=== PATIENT | male | born 1975 | race Two or more races ===

== ENCOUNTER 2024-06-06 12:04 | Emergency (ER) | payer MEDICAID, SELFPAY ==
[2024-06-06 12:05] VITALS: BMI 35.4
--- NOTE | 2024-06-06 12:22 | XR_ITS ---
Examination: Toes, right foot first digit 3 views Technique: Toes AP oblique lateral 3 views first digit right foot Date and time of exam: June 06, 2024 1232 hrs. Indications: Redness swelling and pain nonhealing wound first digit one week, diabetic history 3 years Findings: Subtle chronic erosion ungual tuft tip distal phalanx first digit with associated soft tissue swelling No fracture Impression: Early cortical bone erosion ungual tuft tip distal phalanx first digit consistent with osteomyelitis Consider MRI foot without contrast follow-up
[2024-06-06 12:25] VITALS: BP 155/103; PULSE 72; RESP 18; TEMP 36.9; O2SAT 99
--- NOTE | 2024-06-06 13:45 | PD.EDRME ---
Rapid Medical Screening Exam RME Arrival date/time: 06/06/24 12:04 49-year-old male diabetic presents to the emergency department complaints of infection to right great toe Chief Complaint: Ankle/Foot Injury Time Seen by Provider: 06/06/24 12:10 Vital signs: Vital Signs Temperature 98.5 F 06/06/24 12:25 Pulse Rate 72 06/06/24 12:25 Respiratory Rate 18 06/06/24 12:25 Blood Pressure 155/103 H 06/06/24 12:25 Pulse Oximetry (%) 99 06/06/24 12:25 Oxygen Delivery Method Room Air 06/06/24 12:25
[2024-06-06 14:32] LABS: Basophils # (Auto) 0.1 Thou/mm3 (0.0-0.2); Basophils % (Auto) 1 % (0-2.5); Eosinophils # (Auto) 0.3 Thou/mm3 (0.0-0.5); Eosinophils % (Auto) 3 % (0-10); Hematocrit 47.4 % (41.0-53.0); Hemoglobin 15.9 g/dL (13.5-16.0); Immature Granulocytes % (Auto) 1 % (0-0); Immature Granulocytes Auto 0.08 Thou/mm3 (0.00-0.00); Lymphocytes # (Auto) 2.1 Thou/mm3 (1.0-4.8); Lymphocytes % (Auto) 21 % (10-50); Mean Corpuscular HGB Conc 33.5 g/dl (31.0-37.0); Mean Corpuscular Hemoglobin 29.3 pg (25.0-35.0); Mean Corpuscular Volume 87 fL (80-100); Monocytes % (Auto) 9 % (0-12); Neutrophils # (Auto) 6.9 Thou/mm3 (1.8-7.7); Neutrophils % (Auto) 66 % (37-80); Nucleated Red Blood Cell % 0 /100 WBC (0); Platelet Count 296 Thou/mm3 (140-440); RDW Standard Deviation 40.4 fL (35.1-43.9); Red Blood Count 5.43 Miln/mm3 (4.50-5.90); White Blood Count 10.4 Thou/mm3 (3.8-10.6)
[2024-06-06 15:06] LABS: Sed Rate (ESR) 29 mm/hr (0-15)
[2024-06-06 15:12] LABS: Alanine Aminotransferase 30 U/L (10-49); Albumin, Serum 4.8 gm/dL (3.5-5.0); Albumin/Globulin Ratio 1.5 (1.2-2.2); Alkaline Phosphatase 100 U/L (46-116); Anion Gap 10 (7-16); Aspartate Amino Transferase 30 U/L (0-34); BUN/Creatinine Ratio 15 Ratio (12-20); Bilirubin,Total 0.5 mg/dL (0.3-1.2); Blood Urea Nitrogen 21 mg/dL (9-23); C-Reactive Protein < 0.4 mg/dL (0.0-0.9); Calcium 9.9 mg/dL (8.3-10.6); Calcium (Corrected) 9.9 mg/dL (8.5-10.1); Carbon Dioxide 23.8 mMol/L (20.0-31.0); Chloride 104 mMol/L (98-107); Creatinine (Component) 1.4 mg/dL (0.6-1.3); Estimated Creatinine Clearance 77.6 mL/min (>60); Globulin 3.2 gm/dL (2.3-3.5); Glucose 234 mg/dL (74-106); Osmolality,Calculated 286 (275-295); Potassium 4.7 mMol/L (3.4-5.1); Procalcitonin 0.13 ng/ml (0.0-0.49); Sodium 138 mMol/L (136-145); eGFR > 60 See Note
--- NOTE | 2024-06-06 18:11 | PD.EDADULT ---
ED General RME/HPI General Chief complaint: Ankle/Foot Injury Stated complaint: INFECTION LEFT GREAT TOE x 5 DAYS Time Seen by Provider: 06/06/24 12:10 Arrival date/time: 06/06/24 12:04 CC: Left great toe pain HPI ongoing for the past week. The patient had a similar episode to the right great toe denies fever chills shortness of breath is a diabetic. No other complaints no OTC medicines taken has not spoken to the the [facility] work from where he gets his health care. RME / HPI RME / HPI narrative: 06/06/24 12:04 49-year-old male diabetic presents to the emergency department complaints of infection to right great toe Related Data Previous Rx's ?Medication ?Instructions ?Recorded metformin 500 mg tablet 500 mg PO BID 1 month #60 tabs 11/13/21 cephalexin 500 mg tablet 500 mg PO TID #21 tabs 06/06/24 sulfamethoxazole 800 1 tab PO BID 7 days #14 tabs 06/06/24 mg-trimethoprim 160 mg tablet (Bactrim DS) Allergies Allergy/AdvReac Type Severity Reaction Status Date / Time No Known Allergies Allergy Verified 06/06/24 12:06 Review of Systems Review of Systems Narrative Review of Systems: GEN: No fever, no chills, no weight loss EYES: No discharge, no visual changes, no pain HEENT: No ear pain, no congestion, no sore throat PULM: No shortness of breath, no cough, no congestion CV: No chest pain, no dyspnea on exertion, no palpitations GI: No nausea, no vomiting, no diarrhea, no pain, no constipation : No frequency, no urgency, no dysuria MUSC/SKEL: No joint pain, no back pain SKIN: No rash PSYCH: No hallucinations, no depression HEME/LYMPH: No easy bleeding or bruising tendencies NEURO: No weakness, no headache Past Medical History Past Medical History NEUROLOGIC: Negative Neurological Disorders CARDIAC: Positive Hypertension; Negative Cardiac Disorders, Myocardial Infarction, Cardiac Arrhythmia, Atrial Fibrillation, Angina, Heart Murmur, Coronary Artery Disease, Atherosclerotic Heart Disease, Peripheral Vascular Disease, Hypercholesterolemia, Aneurysm, Congestive Heart Failure, Congenital Heart Disease, Valvular Heart Disease, Rheumatic Fever, Cardiomyopathy, Edema, Pericarditis, Cellulitis, Deep Vein Thrombosis, Hypotension or Varicose Veins RESPIRATORY: Negative Chronic Obstructive Pulmonary Disease (COPD) or Asthma GASTROINTESTINAL: Negative Gastrointestinal Disorders GENITOURINARY: Negative Genitourinary Disorders or Renal Disease MUSCULOSKELETAL: Negative Musculoskeletal Disorders ENDOCRINE: Positive Diabetes Mellitus Type 2; Negative Endocrine Disorders or Diabetes Mellitus Type 1 HEMATOLOGIC: Negative Blood Disorders or Sickle Cell Disease OTHER HISTORY: Negative Autoimmune Disease, Anesthesia Reactions, Organ Transplant, MRSA, Clostridium Difficile or Cancer Family History FAMILY HISTORY: Negative Family Psychiatric Problems, Family Respiratory Disorders, Family Cardiac Disorders, Family Gastrointestinal Problems, Family Cancer, Family Surgery or Family Anesthesia Reaction Surgical History SURGICAL: Negative Cardiac Surgery, Pacemaker, Endocrine Surgery, Ear Surgery, Abdominal Surgery, Nephrectomy, Joint Replacement, Neurologic Surgery, Mastectomy, Vasectomy or Organ Transplant Social History SMOKING STATUS: Never smoker SUBSTANCE USE: does not use ED Exam Narrative Physical exam: [General: Not in any acute distress Head normocephalic HEENT: Within acceptable limits Neck is supple nontender Chest equal chest rise nontender to palpation Respiratory: Clear to auscultation no wheezes crackles or rubs CV: Rate rhythm is regular no murmurs rubs or clicks Abdomen is soft nontender no masses positive bowel sounds all 4 quadrants Back: No CVA tenderness no spinous process tenderness from cervical spine thoracic and lumbar spine Skin: Small erythematous edematous area to the tip of the left great toe no open ulceration or induration. No streaking, nontender to palpation. Not warm to touch. No other open lesions induration ulcerations. Intact no petechiae rash induration ulceration or crepitus Extremities: Moving all extremity against resistance cap refill less than 2 seconds neurosensory intact Neuro: Awake alert oriented x3 Glascow coma 15 no focal deficits] Course Quality Measures none Orders Category Date Time Status XR toe LT min 2V Stat Exams 06/06/24 12:22 Completed Blood Culture (Lab) Stat Lab 06/06/24 13:58 Received CBC Stat Lab 06/06/24 14:03 Completed CMP [Comprehensive Metabolic Panel] Stat Lab 06/06/24 14:03 Completed CRP [C-Reactive Protein] Stat Lab 06/06/24 14:03 Completed ESR [Sed Rate (ESR)] Stat Lab 06/06/24 14:03 Completed Lactic Acid [Lactate (Lactic Acid)] Stat Lab 06/06/24 14:03 Completed Procalcitonin Stat Lab 06/06/24 14:03 Completed 1,000 mg IM w/Lido* 1% Med 06/06/24 18:11 Ordered cefTRIAXone [Rocephin] 1,000 mg Lidocaine 1% 20 ml [Xylocaine 1% 20 ML] 2.1 ml IM X1 Vital Signs Vital signs: Vital Signs Temperature 98.5 F 06/06/24 12:25 Pulse Rate 72 06/06/24 12:25 Respiratory Rate 18 06/06/24 12:25 Blood Pressure 155/103 H 06/06/24 12:25 Pulse Oximetry (%) 99 06/06/24 12:25 Oxygen Delivery Method Room Air 06/06/24 12:25 [facility] Patient data External records reviewed:: [facility] previous records Clinical information provided by:: patient Social determinants that could affect healthcare access:: none Patient has the following chronic illnesses:: Diabetes How is presenting disease/condition affected by chronic disease/condition?: exacerbated by Evaluation data The following diagnostics were reviewed and interpreted by me:: lab results and radiology exam(s) Lab and/or radiology exams considered but not ordered:: CBC shows no acute leukocytosis anemia thrombocytopenia CMP shows no acute electrolyte imbalances renal impairment transaminitis or T. bili elevation ESR is 29 [place] within acceptable limits Great toe x-ray shows early cortical destruction. Interpretation Summary: This may be early osteomyelitis patient be started on oral antibiotics as written vies to follow-up with the [facility] for wound management referral. Medications Medications considered but not ordered:: None Medication administrations:: None Consultations Consultation(s) initiated? (list below): No Diagnosis Differential Diagnosis ED Complaint MDM: Toe cellulitis toe abscess toe osteomyelitis Most likely diagnosis given after review of the tests above:: Toe cellulitis Admission Indicated Admission indicated?: not indicated Explain why admission is indicated or not indicated:: Stable for outpatient follow-up Admission Request Was there a request for admission?: No Disposition Plan Disposition Plan: Discharge Discharge Attestation Discharge Attestation: The patient and all family members were given an opportunity to ask questions and understood the discharge instructions. Discharge instructions specifically effects, indications for sooner follow up or return to the emergency department, and the expected course of current diagnosis. Patient condition: Stable Medical Decision Making Differential Diagnosis Differential Diagnosis: Toe cellulitis toe abscess toe osteomyelitis Lab Data 06/06/24 14:03 06/06/24 14:03 Labs: Lab Results 06/06/24 Range/Units 14:03 WBC 10.4 (3.8-10.6) Thou/mm3 RBC 5.43 (4.50-5.90) Miln/mm3 Hgb 15.9 (13.5-16.0) g/dL Hct 47.4 (41.0-53.0) % MCV 87 (80-100) fL MCH 29.3 (25.0-35.0) pg MCHC 33.5 (31.0-37.0) g/dl RDW Std Deviation 40.4 (35.1-43.9) fL Plt Count 296 (140-440) Thou/mm3 Neut % (Auto) 66 (37-80) % Lymph % (Auto) 21 (10-50) % [place] % (Auto) 9 (0-12) % Eos % (Auto) 3 (0-10) % Baso % (Auto) 1 (0-2.5) % Neut # (Auto) 6.9 (1.8-7.7) Thou/mm3 Lymph # (Auto) 2.1 (1.0-4.8) Thou/mm3 [place] # (Auto) 1.0 H (0.0-0.8) Thou/mm3 Eos # (Auto) 0.3 (0.0-0.5) Thou/mm3 Baso # (Auto) 0.1 (0.0-0.2) Thou/mm3 Immature Gran # (Auto) 0.08 H (0.00-0.00) Thou/mm3 Absolute Nucleated RBC 0.00 (0.00-0.00) Thou/mm3 Immature Gran % 1 H (0-0) % Nucleated RBC % 0 (0) /100 WBC ESR 29 H (0-15) mm/hr Sodium 138 (136-145) mMol/L Potassium 4.7 (3.4-5.1) mMol/L Chloride 104 (98-107) mMol/L Carbon Dioxide 23.8 (20.0-31.0) mMol/L Anion Gap 10 (7-16) BUN 21 (9-23) mg/dL Creatinine 1.4 H (0.6-1.3) mg/dL Estim Creat Clear Calc 77.6 (>60) mL/min eGFR > 60 (60 - ) See Note BUN/Creatinine Ratio 15 (12-20) Ratio Glucose 234 H (74-106) mg/dL Calculated Osmolality 286 (275-295) Lactic Acid 2.0 (0.4-2.0) mMol/L Calcium 9.9 (8.3-10.6) mg/dL Corrected Calcium 9.9 (8.5-10.1) mg/dL Total Bilirubin 0.5 (0.3-1.2) mg/dL AST 30 (0-34) U/L ALT 30 (10-49) U/L Alkaline Phosphatase 100 (46-116) U/L C-Reactive Prot, Quant < 0.4 (0.0-0.9) mg/dL Total Protein 8.0 (5.7-8.2) gm/dL Albumin 4.8 (3.5-5.0) gm/dL Globulin 3.2 (2.3-3.5) gm/dL Albumin/Globulin Ratio 1.5 (1.2-2.2) Procalcitonin 0.13 (0.0-0.49) ng/ml Discharge Plan Plan Patient Disposition: HOME (Self Care) Patient condition on transfer: Stable Prescriptions/Referrals Prescriptions/Med Rec: New sulfamethoxazole-trimethoprim [Bactrim DS] 800-160 mg tablet 1 tab PO BID 7 Days Qty: 14 0RF cephalexin 500 mg tablet 500 mg PO TID Qty: 21 0RF No Action metformin 500 mg tablet 500 mg PO BID 30 Days Qty: 60 1RF Referrals: Fidel Garcia MD [Primary Care Provider] - In 1 week Problem List Clinical Impression: Cellulitis of great toe Patient/Caregiver Discharge Instructions Other Activity Instructions:: Take the medications as prescribed follow-up with the the [facility] Education Materials: ED Cellulitis Print Language: Persian Stand Alone Forms: Ольга Award Info., Patient Portal Info Letter, Work/School Release PA/CARCASS TRIMMER Supervising Physician PA/CARCASS TRIMMER Supervising Physician: John Wells ENP
[2024-06-06] MEDS: cefTRIAXone 1,000 MG, LIDOCAINE 1% 20 ML 2.1 ML IM (18:37)
== END 2024-06-06 18:47 | disposition home or self-care (01) ==
PROVIDERS: Nurse Practitioner Primary Care; Emergency Provider Emergency Medicine; PCP Family Medicine
DX: L03.032 Cellulitis of left toe (principal)
CPT/HCPCS: 36415; 73660; 80053; 83605; 84145; 85025; 85652; 86140; 87040; 93005; 99283; J0696; J3490

== ENCOUNTER 2024-06-13 16:57 | Emergency (ER) | payer MEDICAID, SELFPAY ==
[2024-06-13 17:04] VITALS: BP 125/86; PULSE 65; RESP 16; TEMP 36.8; O2SAT 99; BMI 33.2
--- NOTE | 2024-06-13 17:15 | EDRME_ITS ---
Rapid Medical Screening Exam [facility] Arrival date/time: 06/13/24 16:57 49-year-old male with a history of type 2 diabetes presents to the emergency room with a chief complaint of a wound to his left great toe. Patient states he followed up with his primary care provider and they sent him to the emergency room to rule out osteomyelitis. Patient was seen here on 06/06/2024 and an x-ray of his foot was completed that showed possible early osteomyelitis and was discharged on antibiotics. Patient states he has been taking his antibiotics but when he saw his primary care provider he was sent to the emergency room. I have greeted and performed a focused initial assessment of this patient. A comprehensive ED assessment and evaluation of the patient, analysis of all test results, and completion of the medical decision making process will be conducted by additional ED providers. Chief Complaint: Wound/Laceration Vital signs: Vital Signs Temperature 98.2 F 06/13/24 17:04 Pulse Rate 65 06/13/24 17:04 Respiratory Rate 16 06/13/24 17:04 Blood Pressure 125/86 H 06/13/24 17:04 Pulse Oximetry (%) 99 06/13/24 17:04 Oxygen Delivery Method Room Air 06/13/24 17:04 Vital signs reviewed by provider: Yes
--- NOTE | 2024-06-13 17:17 | XR_ITS ---
Examination: Foot, left, 3 views Technique: AP, oblique, lateral views foot, 3 views Date and time of exam: June 13, 2024 1726 hours INDICATIONS: Redness swelling and pain infection left first digit beginning 8 days ago. FINDINGS: Soft tissue swelling about the first digit Again noted mild cortical bone erosion involving the ungual tuft tip distal phalanx first digit No fracture No foreign body IMPRESSION: Again noted mild cortical erosion involving the ungual tuft tip distal phalanx first digit MRI foot without contrast follow-up would confirm early osteomyelitis
[2024-06-13 18:04] LABS: Basophils # (Auto) 0.1 Thou/mm3 (0.0-0.2); Basophils % (Auto) 1 % (0-2.5); Eosinophils # (Auto) 0.3 Thou/mm3 (0.0-0.5); Eosinophils % (Auto) 2 % (0-10); Hematocrit 48.1 % (41.0-53.0); Hemoglobin 16.3 g/dL (13.5-16.0); Immature Granulocytes % (Auto) 1 % (0-0); Immature Granulocytes Auto 0.08 Thou/mm3 (0.00-0.00); Lymphocytes # (Auto) 2.5 Thou/mm3 (1.0-4.8); Lymphocytes % (Auto) 18 % (10-50); Mean Corpuscular HGB Conc 33.9 g/dl (31.0-37.0); Mean Corpuscular Hemoglobin 29.5 pg (25.0-35.0); Mean Corpuscular Volume 87 fL (80-100); Monocytes # (Auto) 0.9 Thou/mm3 (0.0-0.8); Monocytes % (Auto) 7 % (0-12); Neutrophils # (Auto) 10.1 Thou/mm3 (1.8-7.7); Neutrophils % (Auto) 72 % (37-80); Nucleated Red Blood Cell % 0 /100 WBC (0); Platelet Count 261 Thou/mm3 (140-440); RDW Standard Deviation 39.6 fL (35.1-43.9); Red Blood Count 5.52 Miln/mm3 (4.50-5.90); White Blood Count 13.9 Thou/mm3 (3.8-10.6)
[2024-06-13 18:32] LABS: Alanine Aminotransferase 22 U/L (10-49); Albumin, Serum 4.8 gm/dL (3.5-5.0); Albumin/Globulin Ratio 1.5 (1.2-2.2); Alkaline Phosphatase 99 U/L (46-116); Anion Gap 9 (7-16); Aspartate Amino Transferase 19 U/L (0-34); BUN/Creatinine Ratio 14 Ratio (12-20); Bilirubin,Total 0.4 mg/dL (0.3-1.2); Blood Urea Nitrogen 23 mg/dL (9-23); C-Reactive Protein < 0.4 mg/dL (0.0-0.9); Calcium 9.6 mg/dL (8.3-10.6); Calcium (Corrected) 9.6 mg/dL (8.5-10.1); Chloride 101 mMol/L (98-107); Creatinine (Component) 1.7 mg/dL (0.6-1.3); Estimated Creatinine Clearance 61.9 mL/min (>60); Globulin 3.1 gm/dL (2.3-3.5); Glucose 236 mg/dL (74-106); Osmolality,Calculated 279 (275-295); Potassium 5.4 mMol/L (3.4-5.1); Procalcitonin 0.15 ng/ml (0.0-0.49); Sodium 134 mMol/L (136-145); Total Protein 7.9 gm/dL (5.7-8.2); eGFR 49 See Note
[2024-06-13 18:51] LABS: Sed Rate (ESR) 26 mm/hr (0-15)
--- NOTE | 2024-06-13 19:49 | PD.EDADULT ---
ED General RME/HPI General Chief complaint: Wound/Laceration Stated complaint: LEFT TOE WOUND Time Seen by Provider: 06/13/24 19:36 Arrival date/time: 06/13/24 16:57 CC: Great toe pain HPI patient presents the ER with complaints of the left great toe pain. Patient was seen by me 1 week ago started on antibiotics after determination there is an early cellulitis in the toe. The patient returns 1 week later, stating that toe continues to hurt him. Patient denies any other symptoms including other toe pain foot pain or ankle pain. Patient denies any fever chills rigors shortness of breath or difficulty breathing. RME / HPI RME / HPI narrative: 06/13/24 16:57 49-year-old male with a history of type 2 diabetes presents to the emergency room with a chief complaint of a wound to his left great toe. Patient states he followed up with his primary care provider and they sent him to the emergency room to rule out osteomyelitis. Patient was seen here on 06/06/2024 and an x-ray of his foot was completed that showed possible early osteomyelitis and was discharged on antibiotics. Patient states he has been taking his antibiotics but when he saw his primary care provider he was sent to the emergency room. I have greeted and performed a focused initial assessment of this patient. A comprehensive ED assessment and evaluation of the patient, analysis of all test results, and completion of the medical decision making process will be conducted by additional ED providers. Related Data Previous Rx's ?Medication ?Instructions ?Recorded metformin 500 mg tablet 500 mg PO BID 1 month #60 tabs 11/13/21 cephalexin 500 mg tablet 500 mg PO TID #21 tabs 06/06/24 sulfamethoxazole 800 1 tab PO BID 7 days #14 tabs 06/13/24 mg-trimethoprim 160 mg tablet (Bactrim DS) Allergies Allergy/AdvReac Type Severity Reaction Status Date / Time No Known Allergies Allergy Verified 06/06/24 12:06 Review of Systems Review of Systems Narrative Review of Systems: GEN: No fever, no chills, no weight loss EYES: No discharge, no visual changes, no pain HEENT: No ear pain, no congestion, no sore throat PULM: No shortness of breath, no cough, no congestion CV: No chest pain, no dyspnea on exertion, no palpitations GI: No nausea, no vomiting, no diarrhea, no pain, no constipation : No frequency, no urgency, no dysuria MUSC/SKEL: No joint pain, no back pain,+ pain SKIN: No rash PSYCH: No hallucinations, no depression HEME/LYMPH: No easy bleeding or bruising tendencies NEURO: No weakness, no headache Past Medical History Past Medical History NEUROLOGIC: Negative Neurological Disorders CARDIAC: Positive Hypertension; Negative Cardiac Disorders, Myocardial Infarction, Cardiac Arrhythmia, Atrial Fibrillation, Angina, Heart Murmur, Coronary Artery Disease, Atherosclerotic Heart Disease, Peripheral Vascular Disease, Hypercholesterolemia, Aneurysm, Congestive Heart Failure, Congenital Heart Disease, Valvular Heart Disease, Rheumatic Fever, Cardiomyopathy, Edema, Pericarditis, Cellulitis, Deep Vein Thrombosis, Hypotension or Varicose Veins RESPIRATORY: Negative Chronic Obstructive Pulmonary Disease (COPD) or Asthma GASTROINTESTINAL: Negative Gastrointestinal Disorders GENITOURINARY: Negative Genitourinary Disorders or Renal Disease MUSCULOSKELETAL: Negative Musculoskeletal Disorders ENDOCRINE: Positive Diabetes Mellitus Type 2; Negative Endocrine Disorders or Diabetes Mellitus Type 1 HEMATOLOGIC: Negative Blood Disorders or Sickle Cell Disease OTHER HISTORY: Negative Autoimmune Disease, Anesthesia Reactions, Organ Transplant, MRSA, Clostridium Difficile or Cancer Family History FAMILY HISTORY: Negative Family Psychiatric Problems, Family Respiratory Disorders, Family Cardiac Disorders, Family Gastrointestinal Problems, Family Cancer, Family Surgery or Family Anesthesia Reaction Surgical History SURGICAL: Negative Cardiac Surgery, Pacemaker, Endocrine Surgery, Ear Surgery, Abdominal Surgery, Nephrectomy, Joint Replacement, Neurologic Surgery, Mastectomy, Vasectomy or Organ Transplant Social History SMOKING STATUS: Never smoker SUBSTANCE USE: does not use ED Exam Narrative Physical exam: [General: Not in any acute distress Head normocephalic HEENT: Within acceptable limits Neck is supple nontender Chest equal chest rise nontender to palpation Respiratory: Clear to auscultation no wheezes crackles or rubs CV: Rate rhythm is regular no murmurs rubs or clicks Abdomen is distended secondary to body habitus soft nontender no masses positive bowel sounds all 4 quadrants Back: No CVA tenderness no spinous process tenderness from cervical spine thoracic and lumbar spine Skin: Left great toe the tip is mildly erythematous mildly edematous but not warm to touch. There is no open lesions induration ulcerations. There is no streaking on the dorsum of the toe or dorsum of the foot. Pad of the foot clean dry and intact. No other toes have erythema edema or exudate. Otherwise skin is intact no petechiae rash induration ulceration or crepitus Extremities: Moving all extremity against resistance cap refill less than 2 seconds neurosensory intact Neuro: Awake alert oriented x3 Glascow coma 15 no focal deficits] Course Quality Measures VTE prophylaxis Orders Category Date Time Status Saline [Insert IV] NOW Care 06/13/24 19:48 Active XR foot comp LT min 3V Stat Exams 06/13/24 17:17 Completed CBC Stat Lab 06/13/24 17:47 Completed CMP [Comprehensive Metabolic Panel] Stat Lab 06/13/24 17:47 Completed CRP [C-Reactive Protein] Stat Lab 06/13/24 17:47 Completed ESR [Sed Rate (ESR)] Stat Lab 06/13/24 17:47 Completed Lactate (Lactic Acid) Stat Lab 06/13/24 17:47 Completed Procalcitonin Stat Lab 06/13/24 17:47 Completed cefTRIAXone/D5w 1gm IV premix [Rocephin/D5w 1gm IV Med 06/13/24 19:49 Active premix] 50 ml IV X1 Vital Signs Vital signs: Vital Signs Temperature 98.2 F 06/13/24 17:04 Pulse Rate 65 06/13/24 17:04 Respiratory Rate 16 06/13/24 17:04 Blood Pressure 125/86 H 06/13/24 17:04 Pulse Oximetry (%) 99 06/13/24 17:04 Oxygen Delivery Method Room Air 06/13/24 17:04 [facility] Patient data External records reviewed:: [facility] previous records Clinical information provided by:: patient Social determinants that could affect healthcare access:: none Patient has the following chronic illnesses:: Diabetes How is presenting disease/condition affected by chronic disease/condition?: exacerbated by Evaluation data The following diagnostics were reviewed and interpreted by me:: lab results and radiology exam(s) Lab and/or radiology exams considered but not ordered:: CBC shows a mild leukocytosis of 13, no anemia or thrombocytopenia CMP shows a sodium 134 potassium of 5.4, chloride of 101 CO2 of 24.0 BUN of 23 creatinine 1.7 glucose of 236. X-ray is unchanged over the last x-ray showing mild cortical destruction. Interpretation Summary: Think this is a chronic and is appears acute nature patient will be given antibiotics here start another dose of antibiotics and then the patient needs to follow-up with the [facility] and then referred to podiatry. Medications Medications considered but not ordered:: None Medication administrations:: Medication Administration History Ceftriaxone Sodium/Dextrose (Rocephin/D5w 1gm Iv Premix) 50 mls @ 100 mls/hr IV X1 ONE Stop: 06/13/24 20:18 None Consultations Consultation(s) initiated? (list below): No Diagnosis Differential Diagnosis ED Complaint MDM: Cellulitis osteomyelitis toe abscess Most likely diagnosis given after review of the tests above:: Toe cellulitis Admission Indicated Admission indicated?: not indicated Explain why admission is indicated or not indicated:: Stable for outpatient follow-up Admission Request Was there a request for admission?: No Disposition Plan Disposition Plan: Discharge Discharge Attestation Discharge Attestation: The patient and all family members were given an opportunity to ask questions and understood the discharge instructions. Discharge instructions specifically effects, indications for sooner follow up or return to the emergency department, and the expected course of current diagnosis. Patient condition: Stable Medical Decision Making Differential Diagnosis Differential Diagnosis: Cellulitis osteomyelitis toe abscess Lab Data 06/13/24 17:47 06/13/24 17:47 Labs: Lab Results 06/13/24 Range/Units 17:47 WBC 13.9 H (3.8-10.6) Thou/mm3 RBC 5.52 (4.50-5.90) Miln/mm3 Hgb 16.3 H (13.5-16.0) g/dL Hct 48.1 (41.0-53.0) % MCV 87 (80-100) fL MCH 29.5 (25.0-35.0) pg MCHC 33.9 (31.0-37.0) g/dl RDW Std Deviation 39.6 (35.1-43.9) fL Plt Count 261 D (140-440) Thou/mm3 Neut % (Auto) 72 (37-80) % Lymph % (Auto) 18 (10-50) % [place] % (Auto) 7 (0-12) % Eos % (Auto) 2 (0-10) % Baso % (Auto) 1 (0-2.5) % Neut # (Auto) 10.1 H (1.8-7.7) Thou/mm3 Lymph # (Auto) 2.5 (1.0-4.8) Thou/mm3 [place] # (Auto) 0.9 H (0.0-0.8) Thou/mm3 Eos # (Auto) 0.3 (0.0-0.5) Thou/mm3 Baso # (Auto) 0.1 (0.0-0.2) Thou/mm3 Immature Gran # (Auto) 0.08 H (0.00-0.00) Thou/mm3 Absolute Nucleated RBC 0.00 (0.00-0.00) Thou/mm3 Immature Gran % 1 H (0-0) % Nucleated RBC % 0 (0) /100 WBC ESR 26 H (0-15) mm/hr Sodium 134 L (136-145) mMol/L Potassium 5.4 H (3.4-5.1) mMol/L Chloride 101 (98-107) mMol/L Carbon Dioxide 24.0 (20.0-31.0) mMol/L Anion Gap 9 (7-16) BUN 23 (9-23) mg/dL Creatinine 1.7 H (0.6-1.3) mg/dL Estim Creat Clear Calc 61.9 (>60) mL/min eGFR 49 L (60 - ) See Note BUN/Creatinine Ratio 14 (12-20) Ratio Glucose 236 H (74-106) mg/dL Calculated Osmolality 279 (275-295) Lactic Acid 2.0 (0.4-2.0) mMol/L Calcium 9.6 (8.3-10.6) mg/dL Corrected Calcium 9.6 (8.5-10.1) mg/dL Total Bilirubin 0.4 (0.3-1.2) mg/dL AST 19 (0-34) U/L ALT 22 (10-49) U/L Alkaline Phosphatase 99 (46-116) U/L C-Reactive Prot, Quant < 0.4 (0.0-0.9) mg/dL Total Protein 7.9 (5.7-8.2) gm/dL Albumin 4.8 (3.5-5.0) gm/dL Globulin 3.1 (2.3-3.5) gm/dL Albumin/Globulin Ratio 1.5 (1.2-2.2) Procalcitonin 0.15 (0.0-0.49) ng/ml Discharge Plan Plan Patient Disposition: HOME (Self Care) Patient condition on transfer: Stable Prescriptions/Referrals Prescriptions/Med Rec: New sulfamethoxazole-trimethoprim [Bactrim DS] 800-160 mg tablet 1 tab PO BID 7 Days Qty: 14 0RF No Action metformin 500 mg tablet 500 mg PO BID 30 Days Qty: 60 1RF cephalexin 500 mg tablet 500 mg PO TID Qty: 21 0RF Referrals: Jose Nice MD [Primary Care Provider] - In 1 week Problem List Clinical Impression: Cellulitis of great toe Patient/Caregiver Discharge Instructions Education Materials: ED Cellulitis Print Language: Tanzanian Stand Alone Forms: Ольга Award Info., Patient Portal Info Letter PA/MANAGER DEVELOPMENTAL Supervising Physician PA/MANAGER DEVELOPMENTAL Supervising Physician: John Wells ENP
[2024-06-13] MEDS: cefTRIAXone/D5w 1gm IV premix 50 ML IV (20:00)
[2024-06-13 20:46] VITALS: BP 121/79; PULSE 67; RESP 17; O2SAT 98
== END 2024-06-13 20:48 | disposition home or self-care (01) ==
PROVIDERS: Nurse Practitioner Family; Emergency Provider Emergency Medicine; PCP Family Medicine
DX: L03.032 Cellulitis of left toe (principal)
CPT/HCPCS: 36415; 73630; 80053; 83605; 84145; 85025; 85652; 86140; 99284; J0696

== ENCOUNTER 2024-07-14 05:47 | Emergency (ER) | payer MEDICAID, SELFPAY ==
[2024-07-14 05:54] VITALS: BP 158/96; PULSE 66; RESP 18; TEMP 36.7; O2SAT 97
--- NOTE | 2024-07-14 06:19 | XR_ITS ---
Examination: Fingers, right hand fourth digit 3 views Technique: AP, oblique, lateral views right hand fourth digit 3 views. Exam date and time: July 24, 2024 0641 hrs. Indications: Injury to the hand today with fourth digit pain. Findings: Tiny fracture off the ungual tip distal phalanx fourth digit No dislocation or foreign body Impression: Tiny fracture off the ungual tuft tip distal phalanx fourth digit
--- NOTE | 2024-07-14 07:19 | EDNOTE_ITS ---
<Statement entered by Luna Santamaria MD - 07/17/24 07:14> As co-signing physician, I was present and available for consult prn. I concur with the plan and care as documented by the midlevel provider. Upper Extremity Injury RME/HPI General Chief Complaint: Hand/Wrist Problems Stated Complaint: RIGHT FINGER INJURY Time Seen by Provider: 07/14/24 06:09 Source: patient Arrival date/time: 07/14/24 05:47 This is a 49-year-old male who presents to the emergency department with complaints of a contusion to his right fourth digit. 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 He has noticed some pain under his nail there is ecchymosis and swelling. CMS intact. No other injuries reported. Mode of arrival: ambulatory Limitations: no limitations Related Data Previous Rx's ?Medication ?Instructions ?Recorded metformin 500 mg tablet 500 mg PO BID 1 month #60 ta bs 11/13/21 cephalexin 500 mg tablet 500 mg PO TID #21 tabs 06/06 ibuprofen 600 mg tablet 600 mg PO Q8H PRN pain #30 t abs 07/14/24 sulfamethoxazole 800 1 tab PO BID 7 days #14 tabs 07/14/24 mg-trimethoprim 160 mg tablet (Bactrim DS) Allergies Allergy/AdvReac Type Severity Reaction Status Date / Time No Known Allergies Allergy Verified 06/06/24 12:06 Review of Systems Review of Systems Systems Reviewed: All systems reviewed, normal except as documented Narrative Review of Systems: Gen: No fever, no chills, no weight loss EYES: No discharge, no visual changes, no pain HEENT: No ear pain, no congestion, no sore throat PULM: No shortness of breath, no cough, no congestion CV: No chest pain, no dyspnea on exertion, no palpitations GI: No nausea, no vomiting, no diarrhea, no pain, no constipation : No frequency, no urgency, no dysuria Musc/skel: Right finger pain pain, no back pain Skin: No rash Psyc: No hallucinations, no depression Heme/Lymph: No easy bleeding or bruising tendencies Neuro: No weakness, no headache ED Exam General Limitations: Present no limitations General appearance: Present alert and in no apparent distress Head Head exam: Present atraumatic Eye Eye exam: Present normal appearance, PERRL and EOMI ENT ENT exam: Present normal exam, normal oropharynx and mucous membranes moist Neck Neck exam: Present normal inspection, full ROM and trachea midline Chest Chest inspection: Present normal inspection and symmetric chest wall rise Respiratory Respiratory exam: Present normal lung sounds bilaterally Cardiovascular Cardiovascular exam: Present regular rate, normal rhythm and normal heart sounds Abdominal Exam Abdominal exam: Present soft and normal bowel sounds Extremities Exam Extremities exam: Present full ROM Expanded Upper Extremity Exam Hand L/R back image: 2 1. + Positive subungual hematoma, digit right hand. + CMS intact Back Exam Back exam: Present normal inspection and full ROM Neurological Exam Neurological exam: Present alert, oriented X3 and CN II-XII intact Psychiatric Psychiatric exam: Present normal affect and normal mood Skin Skin exam: Present warm, dry, intact and normal color Course Quality Measures none Orders Category Date Time Status XR finger RT min 2V Stat Exams 07/14/24 06:19 Completed Vital Signs Vital signs: Vital Signs Temperature 98.0 F 07/14/24 05:54 Pulse Rate 66 07/14/24 05:54 Respiratory Rate 18 07/14/24 05:54 Blood Pressure 158/96 H 07/14/24 05:54 Pulse Oximetry (%) 97 07/14/24 05:54 Oxygen Delivery Method Room Air 07/14/24 05:54 Extremity Injury MDM Narrative MDM Narrative:: Patient does have a subungual hematoma in which I used an 18-gauge needle to relieve pressure. Tolerated procedure well. Patient is placed on oral antibiotics outpatient. Advised to keep area clean and dry a finger splint was applied for protection there is an x-ray that was ordered which demonstrated a tiny distal tuft fracture. Advised to follow-up with his PCP return to the emergency department this any worsening symptoms and condition. Patient data External records reviewed:: [facility] previous records Clinical information provided by:: patient Social determinants that could affect healthcare access:: none Patient has the following chronic illnesses:: no How is presenting disease/condition affected by chronic disease/condition?: no chronic disease Evaluation data The following diagnostics were reviewed and interpreted by me:: radiology exam(s) Lab and/or radiology exams considered but not ordered:: no Interpretation Summary: Examination: Fingers, right hand fourth digit 3 views Technique: AP, oblique, lateral views right hand fourth digit 3 views. Exam date and time: July 24, 2024 0641 hrs. Indications: Injury to the hand today with fourth digit pain. Findings: Tiny fracture off the ungual tip distal phalanx fourth digit No dislocation or foreign body Impression: Tiny fracture off the ungual tuft tip distal phalanx fourth digit Medications / Prescriptions Medications or Prescriptions considered but not ordered:: abx and pain meds Medication administrations:: no Consultations Consultation(s) initiated? (list below): No Diagnosis Upper Extremity Injury Differential Diagnosis: sprain and strain of wrist, fracture of wrist, finger sprain and dislocation of finger Most likely diagnosis given after review of the tests above:: Subungual hematoma, small tuft fracture Admission Indicated Admission indicated?: not indicated Admission Request Was there a request for admission?: No Disposition Plan Disposition Plan: Discharge Discharge Attestation Discharge Attestation: The patient and all family members were given an opportunity to ask questions and understood the discharge instructions. Discharge instructions specifically effects, indications for sooner follow up or return to the emergency department, and the expected course of current diagnosis. Patient condition: Stable Discharge Plan Plan Patient Disposition: HOME (Self Care) Patient condition on transfer: Stable Prescriptions/Referrals Prescriptions/Med Rec: New sulfamethoxazole-trimethoprim [Bactrim DS] 800-160 mg tablet 1 tab PO BID 7 Days Qty: 14 0RF ibuprofen 600 mg tablet 600 mg PO Q8H PRN (Reason: pain) Qty: 30 0RF No Action metformin 500 mg tablet 500 mg PO BID 30 Days Qty: 60 1RF cephalexin 500 mg tablet 500 mg PO TID Qty: 21 0RF Problem List Clinical Impression: Contusion of finger, Subungual hematoma Patient/Caregiver Discharge Instructions Education Materials: ED Finger Contusion Additional Instructions: Please take antibiotic as directed. Keep area clean and dry. Your nail will fall on its own. Follow-up with your PCP 1 week for follow-up care Return to the emergency department this any worsening symptoms change in condition Print Language: Pakistani Stand Alone Forms: Ольга Award Info., Patient Portal Info Letter PA/POWER DRIVEN BRUSH MAKER Supervising Physician PA/[employer] MAKER Supervising Physician: Dr. Fontaine
== END 2024-07-14 07:42 | disposition home or self-care (01) ==
LOC: SERX 07:40
PROVIDERS: Emergency Provider Emergency Medicine; PCP Family Medicine
DX: S60.141A Contusion of right ring finger with damage to nail, initial encounter (principal); W23.0XXA Caught, crushed, jammed, or pinched between moving objects, initial encounter
CPT/HCPCS: 10140; 73140; 99283

== ENCOUNTER 2025-01-28 06:16 | Emergency (ER) | payer MEDICAID, SELFPAY ==
[2025-01-28 06:17] VITALS: BMI 32.5
[2025-01-28 06:38] VITALS: BP 129/83; PULSE 80; RESP 18; TEMP 36.6; O2SAT 98
--- NOTE | 2025-01-28 06:47 | EDNOTE_ITS ---
ED Skin Abcess FB-RME/HPI General Chief complaint: Skin/Abscess/Foreign Body Stated complaint: LEFT LEG REDNESS Time Seen by Provider: 01/28/25 06:19 Source: patient Arrival date/time: 01/28/25 06:16 49-year-old male with a history of type 2 diabetes presents to the emergency room with a chief complaint of redness to his left leg x 1 week Mode of arrival: ambulatory Limitations: no limitations Related Data Previous Rx's ?Medication ?Instructions ?Recorded metformin 500 mg tablet 500 mg PO BID 1 month #60 ta bs 11/13/21 cephalexin 500 mg tablet 500 mg PO TID #21 tabs 06/06 ibuprofen 600 mg tablet 600 mg PO Q8H PRN pain #30 t abs 07/14/24 cephalexin 500 mg capsule 500 mg PO BID 14 days #28 ca ps 01/28/25 Allergies Allergy/AdvReac Type Severity Reaction Status Date / Time No Known Allergies Allergy Verified 06/06/24 12:06 Review of Systems Review of Systems Systems Reviewed: All systems reviewed, normal except as documented Constitutional Constitutional: Reports system reviewed and no additional complaints, except as documented, Denies fatigue, Denies fever(s), Denies headache(s) and Denies weakness Eyes Eyes: Reports system reviewed and no additional complaints, except as documented, Denies blurry vision and Denies change in vision ENT Ears, Nose, Mouth, and Throat: Reports system reviewed and no additional complaints, except as documented, Denies otalgia, Denies headache(s), Denies nasal congestion, Denies throat swelling and Denies vertigo Cardiovascular Cardiovascular: Reports system reviewed and no additional complaints, except as documented, Denies chest pain, Denies dyspnea and Denies dyspnea on exertion Respiratory Respiratory: Reports system reviewed and no additional complaints, except as documented, Denies chest congestion, Denies cough, Denies dyspnea, Denies dyspnea on exertion and Denies wheezing Gastrointestinal Gastrointestinal: Reports system reviewed and no additional complaints, except as documented, Denies abdominal pain, Denies cramping, Denies nausea and Denies vomiting Genitourinary Genitourinary: Reports system reviewed and no additional complaints, except as documented, Denies dysuria and Denies hematuria Musculoskeletal Musculoskeletal: Reports system reviewed and no additional complaints, except as documented and Denies back pain Integumentary/Breasts Skin/Breast: Reports system reviewed and no additional complaints, except as documented, Reports pruritus and Reports wounds Neurologic Neurologic: Reports system reviewed and no additional complaints, except as documented, Denies confusion, Denies headache(s), Denies lack of coordination, Denies vertigo and Denies weakness Psychiatric Psychiatric: Reports system reviewed and no additional complaints, except as documented, Denies anxiety, Denies confusion, Denies depression, Denies paranoia, Denies suicidal ideation and Denies tactile hallucinations Endocrine Endocrine: Reports system reviewed and no additional complaints, except as documented and Denies fatigue Hematologic/Lymphatic Hematologic/Lymphatic: Reports system reviewed and no additional complaints, except as documented and Denies lymphadenopathy Allergic/Immunologic Allergic/Immunologic: Reports system reviewed and no additional complaints, except as documented, Denies throat swelling, Denies urticaria and Denies wheezing Past Medical History Past Medical History NEUROLOGIC: Negative Neurological Disorders CARDIAC: Positive Hypertension; Negative Cardiac Disorders, Myocardial Infarction, Cardiac Arrhythmia, Atrial Fibrillation, Angina, Heart Murmur, Coronary Artery Disease, Atherosclerotic Heart Disease, Peripheral Vascular Disease, Hypercholesterolemia, Aneurysm, Congestive Heart Failure, Congenital Heart Disease, Valvular Heart Disease, Rheumatic Fever, Cardiomyopathy, Edema, Pericarditis, Cellulitis, Deep Vein Thrombosis, Hypotension or Varicose Veins RESPIRATORY: Negative Chronic Obstructive Pulmonary Disease (COPD) or Asthma GASTROINTESTINAL: Negative Gastrointestinal Disorders GENITOURINARY: Negative Genitourinary Disorders or Renal Disease MUSCULOSKELETAL: Negative Musculoskeletal Disorders ENDOCRINE: Positive Diabetes Mellitus Type 2; Negative Endocrine Disorders or Diabetes Mellitus Type 1 HEMATOLOGIC: Negative Blood Disorders or Sickle Cell Disease OTHER HISTORY: Negative Autoimmune Disease, Anesthesia Reactions, Organ Transplant, MRSA, Clostridium Difficile or Cancer Family History FAMILY HISTORY: Negative Family Psychiatric Problems, Family Respiratory Disorders, Family Cardiac Disorders, Family Gastrointestinal Problems, Family Cancer, Family Surgery or Family Anesthesia Reaction Surgical History SURGICAL: Negative Cardiac Surgery, Pacemaker, Endocrine Surgery, Ear Surgery, Abdominal Surgery, Nephrectomy, Joint Replacement, Neurologic Surgery, Mastectomy, Vasectomy or Organ Transplant Social History SMOKING STATUS: Never smoker SUBSTANCE USE: does not use ED Exam General Limitations: Present no limitations General appearance: Present alert and in no apparent distress Head Head exam: Present atraumatic Eye Eye exam: Present normal appearance, PERRL and EOMI ENT ENT exam: Present normal exam, normal oropharynx and mucous membranes moist Neck Neck exam: Present normal inspection, full ROM and trachea midline Chest Chest inspection: Present normal inspection and symmetric chest wall rise Respiratory Respiratory exam: Present normal lung sounds bilaterally Cardiovascular Cardiovascular exam: Present regular rate, normal rhythm and normal heart sounds Abdominal Exam Abdominal exam: Present soft and normal bowel sounds Extremities Exam Extremities exam: Present normal inspection and full ROM Back Exam Back exam: Present normal inspection and full ROM Neurological Exam Neurological exam: Present alert, oriented X3 and CN II-XII intact Psychiatric Psychiatric exam: Present normal affect and normal mood Skin Skin exam: Present warm, dry, intact and normal color Expanded Skin Exam Type of lesion: Present other (Cellulitis) Distribution: Present LLE Description: Present erythematous Body image: 2 1. Small 1 cm area of an erythemic open wound. There is no eschar there is no warmth to the touch there is no evidence of sepsis. The area is about 1 cm has a circular ring that is erythemic but the wound itself is very dry and scabbed up Course Quality Measures none Vital Signs Vital signs: Vital Signs Temperature 98 F 01/28/25 06:38 Pulse Rate 80 01/28/25 06:38 Respiratory Rate 18 01/28/25 06:38 Blood Pressure 129/83 01/28/25 06:38 Pulse Oximetry (%) 98 01/28/25 06:38 Oxygen Delivery Method Room Air 01/28/25 06:38 Skin / Abscess / Foreign Body MDM Narrative MDM Narrative:: 49-year-old male with a history of type 2 diabetes presents to the emergency room with a chief complaint of redness to his left leg x 1 week Patient is hemodynamically stable and in no apparent distress. He is afebrile not tachycardic not tachypneic Physical examination shows a 1 cm area of redness to his left lower extremity. This area was not draining there is no pus it is very dry and has a scab forming. In the center of the scab there is a small dark area which was what concerned the patient. The patient does not know what his last blood sugar was. Patient states he took 2 days of antibiotics that he had leftover from a previous diabetic foot ulcer complication. At this time the area is not warm to the touch it is not draining and antibiotics were sent to the patient's pharmacy. The patient was given instructions to follow-up with his primary care provider for further management, given strict return precautions of his signs and symptoms to get worse. Patient data External records reviewed:: [facility] previous records Clinical information provided by:: patient Social determinants that could affect healthcare access:: none Patient has the following chronic illnesses:: Type 2 diabetes How is presenting disease/condition affected by chronic disease/condition?: e xacerbated by Evaluation data The following diagnostics were reviewed and interpreted by me:: lab results and radiology exam(s) Lab and/or radiology exams considered but not ordered:: Labs and radiology exams considered and ordered Interpretation Summary: N/A Medications / Prescriptions Medications or Prescriptions considered but not ordered:: N/A Medication administrations:: N/A Consultations Consultation(s) initiated? (list below): No Diagnosis Skin/Abscess Differential Diagnosis: abscess of skin or subcutaneous tissue, cellulitis and contact dermatitis Most likely diagnosis given after review of the tests above:: Cellulitis Admission Indicated Admission indicated?: not indicated Admission Request Was there a request for admission?: No Disposition Plan Disposition Plan: Discharge Discharge Attestation Discharge Attestation: The patient and all family members were given an opportunity to ask questions and understood the discharge instructions. Discharge instructions specifically effects, indications for sooner follow up or return to the emergency department, and the expected course of current diagnosis. Patient condition: Stable Discharge Plan Plan Patient Disposition: HOME (Self Care) Discharge Disposition comment: Stable Prescriptions/Referrals Prescriptions/Med Rec: New cephalexin 500 mg capsule 500 mg PO BID 14 Days Qty: 28 0RF No Action metformin 500 mg tablet 500 mg PO BID 30 Days Qty: 60 1RF ibuprofen 600 mg tablet 600 mg PO Q8H PRN (Reason: pain) Qty: 30 0RF cephalexin 500 mg tablet 500 mg PO TID Qty: 21 0RF Referrals: Temporary Provider,ED [Physician] - In 1 week Problem List Clinical Impression: Cellulitis Patient/Caregiver Discharge Instructions Education Materials: Discharge Instructions for Cellulitis, ED Cellulitis Additional Instructions: Por favor, consulte con manuel m?dico de cabecera en las pr?ximas 24 a 48 horas. Los antibi?ticos se env?an a manuel farmacia; rec?jalos y t?melos seg?n lo indicado. Si la celulitis en manuel pierna empeora, puede regresar a urgencias inmediatamente. Controle manuel nivel de az?car en kemal, ya que esto ayudar? a acelerar la recuperaci?n de la celulitis. Los antibi?ticos se env?an a manuel farmacia; rec?jalos y t?melos seg?n lo indicado. Si observa cualquier signo de empeoramiento de los signos o s?ntomas, regrese a urgencias inmediatamente. Print Language: Romanian Stand Alone Forms: Ольга Award Info., Patient Portal Info Letter PA/OUTDOOR EMERGENCY CARE TECHNICIAN Supervising Physician PA/OUTDOOR EMERGENCY CARE TECHNICIAN Supervising Physician: Dr. Bryan
== END 2025-01-28 07:00 | disposition home or self-care (01) ==
LOC: SERX 07:01
PROVIDERS: Emergency Provider Emergency Medicine; PCP Family Medicine
DX: L03.116 Cellulitis of left lower limb (principal)
CPT/HCPCS: 99281